=== PATIENT | female | born 1965 | race Hispanic/Latino ===

== ENCOUNTER 2019-03-30 01:20 | Emergency (ER) | payer OTHER ==
--- OUTSIDE RECORDS SUMMARY | 2019-03-30 01:22 | XMS REPORT ---
:1965 Author Organization eClinicalWorks Care Team Providers Name Role Phone Cody Stark Provider Role Unavailable Allergies No Known Allergies Problems Problem Type Condition Code Onset Dates Condition Status Problem Anemia, unspecified type D64.9 Active Problem Rheumatoid arthritis involving M06.9 Active multiple sites, unspecified rheumatoid factor presence Problem Mixed hyperlipidemia E78.2 Active Problem HTN, goal below 140/90 I10 Active Medications No Known Medications Results No Known Results Summary Purpose eClinicalStatsMix Submission
--- OUTSIDE RECORDS SUMMARY | 2019-03-30 01:22 | XMS REPORT ---
:1965 [facility] Address [address] [place] [address] Care Team Providers Name Role Phone Unavailable Unavailable Unavailable Problems This patient has no known problems. Allergies, Adverse Reactions, Alerts This patient has no known allergies or adverse reactions. Medications This patient has no known medications. Results Test Description Test Time Test Comments Text Results Atomic Results Result Comments RAD, CHEST, 2 2018-05-16 Reason for FINAL REPORT PATIENT ID: VIEWS 11:38:00 Exam:->sinusitis, [id number] EXAMINATION: unspecified chronicity; RAD, CHEST, 2 VIEWS unspecified location; INDICATION: Rheumatoid arthritis with sinusitis, unspecified negative rheumatoid chronicity; unspecified arthritis with negative location; Rheumatoid rheumatoid factor, arthritis with negative involving unspecified rheumatoid arthritis with site negative rheumatoid factor, involving unspecified site COMPARISON: None FINDINGS:TUBES and LINES: None. LUNGS: Lungs are well inflated. Mild chronic appearing changes in the lungs There is no evidence of pneumonia or pulmonary edema. PLEURA: No pleural effusion or pneumothorax. HEART AND MEDIASTINUM: The cardiomediastinal silhouette is unremarkable. BONES AND SOFT TISSUES: No acute osseous lesion. Soft tissues are unremarkable. UPPER ABDOMEN: No free air under the diaphragm. IMPRESSION: No acute thoracic abnormality. Signed: Thad Jin MDReport Verified Date/Time: 05/16/2018 11:38:56
--- OUTSIDE RECORDS SUMMARY | 2019-03-30 01:22 | XMS REPORT ---
:1965 Author Organization eClinicalWorks Care Team Providers Name Role Phone Jesús Thong Provider Role Unavailable Allergies No Known Allergies Problems Problem Type Condition Code Onset Dates Condition Status Assessment Mixed hyperlipidemia E78.2 Active Assessment Anemia, unspecified type D64.9 Active Problem Anemia, unspecified type D64.9 Active Problem Rheumatoid arthritis involving M06.9 Active multiple sites, unspecified rheumatoid factor presence Problem Mixed hyperlipidemia E78.2 Active Assessment HTN, goal below 140/90 I10 Active Assessment Rheumatoid arthritis involving M06.9 Active multiple sites, unspecified rheumatoid factor presence Problem HTN, goal below 140/90 I10 Active Medications Medication Code Code Instructions Start End Date Status Dosage System Date Lisinopril [facility] 50958638514 10 MG Orally Active 1 tablet Once a day Folic Acid [facility] 35076884692 1 MG Orally Once Active 1 tablet a day Methotrexate ND 69312496785 2.5 MG Orally Active not defined Results No Known Results Summary Purpose eClinicalWorks Submission
--- NOTE | 2019-03-30 01:42 | ER ---
Nurse's Notes [facility] Name: Shelley Moreno Age: 53 yrs Sex: Female : 1965 Arrival Date: 03/30/2019 Time: 01:22 Bed 18 Private MD: Diagnosis: Encounter for screening, unspecified Presentation: 03/30 01:32 Presenting complaint: Patient states: Believes there is ham in right ear; states she lp1 feels it moving in ear. Transition of care: patient was not received from another setting of care. Onset of symptoms was March 30, 2019. Risk Assessment: Do you want to hurt yourself or someone else? Patient reports no desire to harm self or others. Care prior to arrival: None. 01:32 Method Of Arrival: Ambulatory lp1 01:32 Acuity: VERONICA 5 lp1 Triage Assessment: 01:33 General: Appears uncomfortable, Behavior is appropriate for age. lp1 - Unable to obtain history due to: patient distress. Assessment: 01:33 Reassessment: During triage, ham fell out of patient's right ear; patient states lp1 relief;. 01:34 Reassessment: Patient walking out of ED at this time Patient denies pain at this time. lp1 Patient states feeling better. ED Course: :22 Patient arrived in ED. cl3 01:33 Triage completed. lp1 01:34 Arm band placed on. lp1 01:38 Margaret Taylor FNP-C is PHCP. snw 01:38 Armand Parra MD is Attending Physician. snw Administered Medications: No medications were administered Outcome: 01:35 Condition: good lp1 01:36 Discharged to Left prior to being seen by Provider; Foreign body out of right ear lp1 01:39 Discharge ordered by . lp1 01:39 Patient left the ED. lp1 Signatures: Margaret Taylor FNP-C SUPERINTENDENT-Csnw Padmini Bush RN RN lp1 Georgia Soto cl3
--- NOTE | 2019-03-31 07:44 | EDPHYS ---
Physician Documentation [facility] Name: Shelley Moreno Age: 53 yrs Sex: Female : 1965 Arrival Date: 03/30/2019 Time: 01:22 Bed 18 Private MD: ED Physician Armand Parra HPI: 03/30 01:40 This 53 yrs old Female presents to ER via Ambulatory with complaints of Insect snw In Ear. 01:40 Onset: The symptoms/episode began/occurred suddenly, and became persistent. Associated snw signs and symptoms: The patient has no apparent associated signs or symptoms. The patient has not experienced similar symptoms in the past. It is unknown whether or not the patient has recently seen a physician. - Unable to obtain history due to: patient distress. ROS: 01:41 ENT: Positive for foreign body sensation, of the right ear. snw Exam: 01:38 Constitutional: This is a well developed, well nourished patient who is awake, alert, snw and in no acute distress. Head/Face: Normocephalic, atraumatic. 01:38 ENT: Ear canal(s): foreign body, an insect, shaking head to side to try to expel fb, ham flew from canal, pt declines further exam, tx. MDM: 01:41 Data reviewed: nurses notes. Response to treatment: the patient's symptoms have snw markedly improved after treatment. ED course: pt declined further assessment and left ED, s/s resolved. 01:43 Patient medically screened. snw Administered Medications: No medications were administered Disposition: 05:44 Co-signature as Attending Physician, Armand Parra MD I agree with the assessment and [facility] plan of care. Disposition: 03/30/19 01:39 Discharged to Home. Impression: Encounter for screening, unspecified. - Condition is Stable. - Medication Reconciliation Form, Thank You Letter, Antibiotic Education, Prescription Opioid Use form. Signatures: Armand Parra MD MD cha Therrien, Shelly, CHIEF ANALYTICS OFFICER-C CHIEF ANALYTICS OFFICER-Csnw Padmini Bush, RN RN lp1
== END 2019-03-30 01:39 | disposition home or self-care (01) ==
LOC: ER 01:20
DX: T16.1XXA Foreign body in right ear, initial encounter (principal)
CPT/HCPCS: 99281

== ENCOUNTER 2020-01-14 02:58 | Emergency (ER) | payer OTHER ==
--- OUTSIDE RECORDS SUMMARY | 2020-01-14 03:01 | XMS REPORT | Continuity of Care Document ---
:1965 Author Organization [facility] Address [address] [place] [address] Care Team Providers Name Role Phone Pcp, No Primary Care Physician Unavailable Rikki CUNNINGHAM, Cordelia Palma Attending Clinician [phone] Problems Condition Condition Condition Status Onset Resolution Last Treating Co mments Source Name Details Category Date Date Treatment Clinician Date Mixed Mixed Problem Active [facility] hyperlipid hyperlipid [facility] - emia emia [facility] Anemia, Anemia, Problem Active [facility] unspecifie unspecifie Anat kes - d type d type [facility] Rheumatoid Rheumatoid Problem Active [facility] arthritis arthritis [facility] - involving involving Hernán martha multiple multiple l sites, sites, Outpati unspecifie unspecifie en t d d Clinics rheumatoid rheumatoid factor factor presence presence HTN, goal HTN, goal Problem Active [facility] below below [facility] - 140/90 140/90 [facility] Allergies, Adverse Reactions, Alerts This patient has no known allergies or adverse reactions. Social History Social Habit Start Date Stop Date Quantity Comments Source Sex Assigned At [facility] Medications Ordered Filled Start Stop Current Ordering Indication Dosage Frequency Signature Comments Components Source Medication Medication Date Date Medication? Clinician (SIG) Name Name Lisinopril Lisinopril Yes Thong [address] [facility] Folic Acid Folic Acid Yes Thong [address] [facility] Methotrexat Methotrexat Yes Thong not [facility] defined [facility] Procedures This patient has no known procedures. Encounters Start End Encounter Admission Attending Care Care Encounter Source Date/Time Date/Time Type Type Clinicians Facility Department ID 2019-12-13 2019-12-13 Office Uziel HENRIQUEZ [id number] 09:48:13 10:18:13 Visit Cordelia fuchs AMBULATOR [id number] Palma Y [id number] 2017-11-15 2017-11-15 [facility] [id number] 16:19:00 16:19:00 t Specialty/U Anat kes - Specialty rology [facility] a /Urology Clinic l Clinic Outpati ent Clinics 2017-11-02 2017-11-02 [facility] [id number] 15:00:00 15:00:00 t [employer]uity [employer] [facility] Results Test Description Test Time Test Comments Results Result Sour e Comments RAD, CHEST, 2 2018-05-16 Reason for FINAL REPORT PATIENT VIEWS 11:38:00 Exam:->sinusitis ID: [id number] , unspecified EXAMINATION: RAD, chronicity; CHEST, 2 VIEWS unspecified INDICATION: location; sinusitis, unspecified Rheumatoid chronicity; arthritis with unspecified location; negative Rheumatoid arthritis rheumatoid with negative arthritis with rheumatoid arthritis negative with negative rheumatoid rheumatoid factor, factor, involving unspecified involving site COMPARISON: unspecified site None FINDINGS:TUBES and LINES: None. LUNGS: Lungs [...] IMPRESSION: No acute thoracic abnormality. Signed: Thad Ewing MDReport Verified Date/Time: 05/16/2018 11:38:56
--- OUTSIDE RECORDS SUMMARY | 2020-01-14 03:01 | XMS REPORT | Clinical Summary ---
:1965 Author Organization [facility] Address [address] [place] [id number] Care Team Providers Name Role Phone Pcp, No Primary Care Provider Unavailable Allergies Not on File Medications Not on file Active Problems Not on file Social History Tobacco Use Types Packs/Day Years Used Date Never Assessed Sex Assigned at Date Recorded Not on file Last Filed Vital Signs Not on file Plan of Treatment Not on file Results Not on fileafter 01/13/2019
--- OUTSIDE RECORDS SUMMARY | 2020-01-14 03:02 | XMS REPORT | Summary of Care ---
:1965 Author Organization [facility] [place] [address] Care Team Providers Name Role Phone Ramone Quezada MD Primary Care Provider Reason for Referral Consult, Test & Treat (Routine) Status Reason Specialty Diagnoses / Referred By Referred To Procedures Contact Contact Pending Consult, Test, Ophthalmology Diagnoses Seropositive rheumatoid arthritis of multiple sites (HCCode) Encounter for long-term (current) use of medications Yoseph Barndt and Treat Procedures GA OFFICE OUTPATIENT NEW 45 MINUTES GA EYE EXAM, NEW PATIENT,COMPREHESV Cordelia Palma MD Ophthalmology [address] [phone] Phone: Reason for Visit Reason Comments Disease Management Encounter Details Date Type Department Care Team Description 12/13/2019 Office Visit [facility] Fran Brandt anagement Medicine Rheumatolog y Cordelia Palma MD [address] [place] [address] [facility], [address] [place] [address] [place], [place] [id number] Allergies No Known Allergiesdocumented as of this encounter (statuses as of 12/13/2019) Medications Medication Sig Dispensed Refills Start End Date Status Date lisinopril (PRINIVIL, Take 20 mg 0 Active ZESTRIL) 10 MG tablet by mouth daily. predniSONE (DELTASONE) TAKE 1 AND 45 Tab 0 Active 10 MG 1/2 TABLET 9 tabletIndications: BY MOUTH Rheumatoid arthritis, EVERY DAY seropositive (HCCode) folic acid (FOLVITE) 1 Take 1 Tab 90 Tab 1 Active MG tabletIndications: by mouth 9 Seropositive rheumatoid daily. arthritis of multiple sites (HCCode) folic acid (FOLVITE) 1 Take 1 Tab 90 Tab 1 Active MG tablet by mouth 9 daily. hydroxychloroquine Take 1 Tab 90 Tab 1 Active (PLAQUENIL) 200 MG by mouth 0 tabletIndications: daily. Seropositive rheumatoid arthritis of multiple sites (HCCode), Encounter for long-term (current) use of medications methotrexate TAKE 8 TABS 32 Tab 1 Activ e (RHEUMATREX) 2.5 MG BY MOUTH 0 tabletIndications: EVERY 7 Seropositive rheumatoid DAYS. arthritis of multiple sites (HCCode), Encounter for long-term (current) use of medications folic acid (FOLVITE) 1 Take 1 Tab 90 Tab 1 Active MG tabletIndications: by mouth 0 Seropositive rheumatoid daily. arthritis of multiple sites (HCCode), Encounter for long-term (current) use of medications folic acid (FOLVITE) 1 Take 1 Tab 90 Tab 1 Discontinued MG tabletIndications: by mouth 9 20 (Reorder) Seropositive rheumatoid daily. arthritis of multiple sites (HCCode), Encounter for long-term (current) use of medications hydroxychloroquine Take 1 Tab 60 Tab 5 12/13/19 Discontinued (PLAQUENIL) 200 MG by mouth 9 20 ( Reorder) tabletIndications: two times Seropositive rheumatoid daily. arthritis of multiple sites (HCCode), Encounter for long-term (current) use of medications methotrexate TAKE 8 TABS 32 Tab 1 12/13/19 Disco ntinued (RHEUMATREX) 2.5 MG BY MOUTH 0 20 (Reorder) tabletIndications: EVERY 7 Seropositive rheumatoid DAYS. arthritis of multiple sites (HCCode) documented as of this encounter (statuses as of 12/13/2019) Active Problems Problem Noted Date Seropositive rheumatoid arthritis of multiple sites (H CCode) 10/03/2017 documented as of this encounter (statuses as of 12/13/2019) Immunizations Name Administration Dates Next Due Influenza Quad-PF 02/13/2019, 12/27/2017 documented as of this encounter Social History Tobacco Use Types Packs/Day Years Used Date Never Smoker Smokeless Tobacco: Never Used Alcohol Use Drinks/Week oz/Week Comments No Sex Assigned at Date Recorded Not on file documented as of this encounter Last Filed Vital Signs Vital Sign Reading Time Taken Comments Blood Pressure 118/85 12/13/2019 9:53 AM CDT Pulse 80 12/13/2019 9:53 AM CDT Temperature - - Respiratory Rate 16 12/13/2019 9:53 AM CDT Oxygen Saturation 98% 12/13/2019 9:53 AM CDT Inhaled Oxygen Concentration - - Weight 66.8 kg (147 lb 3.2 oz) 12/13/2019 9:53 AM CDT Height 160 cm (5' 3") 12/13/2019 9:53 AM CDT Body Mass Index 26.08 12/13/2019 9:53 AM CDT documented in this encounter Patient Instructions Patient InstructionsCordelia Brandt MD - 12/13/2019 10:00 AM CDTLab today And every 3 months Return in 4-6 months Please take flu vaccine Activate for mychart Continue plaquenil 200mg once a daily Continue folic acid 1mg daily Continue methotrexate 20 mg once a week If any infection , hold methotrexate Please make your return appointment today to avoid undue delay in scheduling Do not take multiples of medication like motrin aleve advil or celebrex together Can take tyenelol in addition if need be Cordelia Brandt MD documented in this encounter Progress Notes Cordelia Brandt MD - 12/13/2019 10:00 AM CDT HISTORY OF PRESENT ILLNESS: Shelley Moreno is a 54 y.o. year old female who's here to follow up for seropositive RA She states methotrexate has helped a lot with her joints She states she still has less than 20 minutes with her joint pain She states she has no nausea gerd or issues with taking this medicine She is here by herself and states is working in the night as a sanitization worker in [employer] Tolerating methotrexate ok Denies nausea vomiting fever Mostly has issue with her ankle and she states she is not having any new issues with her hands or feet Disease course She was diagnosed with RA in 2003. It affected small joints in hands including R 5th PIP, elbow and shoulders, every where. Her previous sling operator does not accept her insurance. REVIEW OF SYSTEMS positive in bold No fevers, chills, sweats, rigors No weight change ( weight loss while working too much) , anorexia, fatigue, malaise No headache, alopecia, eye redness, photophobia, burning, dry eyes No nasal congestion, sores, oral sores, sore throat, dry mouth No cough or sputum No swollen LN in neck or axilla No pleurisy, SOB, PÉREZ, PND. No chest pain or palpitations No abdominal pain, nausea, emesis, diarrhea No lower extremity swelling No paresthesias No muscle weakness or pain. No joint pain or swelling No skin rash, no psoriatic like lesions, no nodules, no livedoid rash, nail pitting, no digital ulcers No Raynauds No heat/cold intolerance No depression or anxiety PAST MEDICAL HISTORY Past Medical History: Diagnosis Date Rheumatoid arthritis (HCCode) PAST SURGICAL HISTORY Past Surgical History: Procedure Laterality Date HX SECTION x2 MEDICATIONS Current Outpatient Medications on File Prior to Visit Medication Sig Dispense Refill folic acid (FOLVITE) 1 MG tablet Take 1 Tab by mouth daily. 90 Tab 1 folic acid (FOLVITE) 1 MG tablet Take 1 Tab by mouth daily. 90 Tab 1 folic acid (FOLVITE) 1 MG tablet Take 1 Tab by mouth daily. 90 Tab 1 hydroxychloroquine (PLAQUENIL) 200 MG tablet Take 1 Tab by mouth two times daily. 60 Tab 5 lisinopril (PRINIVIL, ZESTRIL) 10 MG tablet Take 20 mg by mouth daily. methotrexate (RHEUMATREX) 2.5 MG tablet TAKE 8 TABS BY MOUTH EVERY 7 DAYS. 32 Tab 1 predniSONE (DELTASONE) 10 MG tablet TAKE 1 AND 1/2 TABLET BY MOUTH EVERY DAY 45 Tab 0 No current facility-administered medications on file prior to visit. ALLERGIES Allergies as of 12/13/2019 (No Known Allergies) FAMILY HISTORY FH: No family history on file. SOCIAL HISTORY Social History Tobacco Use Smoking status: Never Smoker Smokeless tobacco: Never Used Substance Use Topics Alcohol use: No Drug use: Not on file PHYSICAL EXAM VS : Blood pressure 118/85, pulse 80, resp. rate 16, height 5' 3" (1.6 m), weight 147 lb 3.2 oz (66.8 kg), SpO2 98 %. GENERAL: NAD, pleasant, healthy appearing HEENT: sclera anicteric, OP clear, PERRL NECK: supple no LAD, no TM, FROM CV: RRR no mgr CHEST: CTA bilateral with no rales no wheezes, equal inspiratory movement bilaterally ABD: soft NT ND BS+ no HSM EXT: no cce Neuro: grossly intact, normal gait, motor exam with nl strength in UE and LE symmetrically, DTR2+ inbrachial, wrist, patellar, ankle sd.; EHL nl sd SKIN no rash, no nail pits, no onycholysis, no nodules MUSCULOSKELETAL EXAM : DIP- no Heberdens nodes, no synovitis, nontender (bilateral) PIP - no Bouchards nodes,+ synovitis, MCP 2,3 nontender (bilateral) MCP - neg squeeze,2 joints small synovitis , WRIST - FROM to palmar and dorsi flexion, no effusion, no synovitis, neg Tinels and Phalens (bilateral) ELBOWS - no effusion, no synovitis, no nodules or tophi, FROM, no flexion contracture, nontender, notendonitis(bilateral) nodules present left elbow SHOULDERS - FROM nontender (bilateral) HIPS - FROM nontender, neg for trochanteric bursitis (bilateral) KNEES - no effusion, no synovitis, nontender, no crepitus, no patellar clicking, neg prepatellar bursa tenderness, neg anserine bursa tenderness (bilateral) ANKLES no synovitis or effusion, FROM in inv/eversion, dorsi/plantar. MTPs neg squeeze tenderness, no synovitis (bilateral) BACK : nontender, normal curvature, neg SLR, neg EHL Fibromyalgia Trigger points negative ADDITIONAL DATA Lab Results Component Value Date WBC 5.0 02/13/2019 HGB 11.7 02/13/2019 HCT 33.8 (L) 02/13/2019 MCV 90.4 02/13/2019 PLT 307 02/13/2019 Results for orders placed or performed in visit on 02/02/19 COMPREHENSIVE METABOLIC PANEL Result Value GLUCOSE 96 BLOOD UREA NITROGEN 10 CREATININE 0.58 (L) EGFR AA 123 EGFR 106 BUN/CREAT RATIO 17 SODIUM 140 POTASSIUM 4.5 CHLORIDE 102 CO2 27 CALCIUM 9.7 PROTEIN TOTAL 7.5 ALBUMIN 4.3 GLOBULINS, SERUM, TOTAL 3.2 A/G RATIO 1.3 BILIRUBIN TOTAL 0.4 ALKALINE PHOSPHATASE 80 AST (SGOT) 8 (L) ALT (SGPT) 8 IMPRESSION AND PLAN Seropositive rheumatoid arthritis of multiple sites High risk medications (not anticoagulants) long-term use SJC 2 TJC 2 Pt global : 2 Physician global 2 CDAI - 8 Seems to have responded to increased methotrexate dose continue same Update eye exam ( use less than 5 yrs of plaquenil ) Imp :Lab today And every 3 months Return in 4-6 months Please take flu vaccine Activate for mychart Continue plaquenil 200mg once a daily Continue folic acid 1mg daily Continue methotrexate 20 mg once a week If any infection , hold methotrexate Please make your return appointment today to avoid undue delay in scheduling Do not take multiples of medication like motrin aleve advil or celebrex together Can take tyenelol in addition if need be Cordelia Brandt MD documented in this encounter Plan of Treatment Name Type Priority Associated Diagnoses Order S chedule CBC W/AUTO DIFF WITH Lab Routine Seropositive rheumat oid Expected: 12/13/2019, PLATELETS arthritis of multiple s: 06/11/[place] sites [place] Encounter for long-term (current) use of medications COMPREHENSIVE METABOLIC Lab Routine Seropositive rheu matoid 1 Occurrences starting PANEL arthritis of multiple 2019 until sites [place] 06/11/2020 Encounter for long-term (current) use of medications C-REACTIVE PROTEIN Lab Routine Seropositive rheumatoi d Expected: 01/12/2020, arthritis of multiple s: 06/11/2020 sites ([facility] Encounter for long-term (current) use of medications Name Type Priority Associated Diagnoses Order S chedule AMB REF TO Outpatient Routine Seropositive Ordered: O[facility]ALMOLOGY [facility] Referral rheumatoid arthritis 12/13/2019 of multiple sites ([facility] Encounter for long-term (current) use of medications Health Maintenance Due Date Last Done Comments COLON CANCER SCREENIN1966 COLONOSCOPY MAMMOGRAM ANNUAL 1965 TETANUS SHOT (ADULT) 1981 BMI FOLLOW UP PLAN 1984 HIV SCREENING 1984 CERVICAL CANCER SCREENING 4 YEAR 1987 FOLLOW UP ZOSTER VACCINE (1 of 2) 2016 FLU VACCINE > 6 MONTHS 11/03/2019 02/13/2019, 02/13/2019, 12/27/2017, Additional history exists documented as of this encounter Results Not on filedocumented in this encounter Visit Diagnoses Diagnosis Seropositive rheumatoid arthritis of [facility] (HCCode) - Primary Encounter for long-term (current) use of medications Encounter for long-term (current) use of other medications documented in this encounter Insurance Payer Benefit Plan / Subscriber ID Effective Dates Phone Addre ss Type Group [facility] [employer] [id number] 2019-Jorge NUNN [id number] [facility] [place] [address] documented as of this encounter
--- NOTE | 2020-01-14 03:17 | ER ---
Nurse's Notes [facility] Name: Shelley Moreno Age: 54 yrs Sex: Female : 1965 Arrival Date: 01/14/2020 Time: 03:00 Bed 3 Private MD: Diagnosis: Allergic reaction Presentation: 01/13 03:12 Chief complaint: Patient states: I have a rash that started yesterday at 4pm. I took a jb4 benadryl at 8pm and one at 1 am. It has not helped at all. Coronavirus screen: Client denies travel out of the [place] in the last 14 days. At this time, the client does not indicate any symptoms associated with coronavirus-19. Ebola Screen: No symptoms or risks identified at this time. Onset: The symptoms/episode began/occurred gradually. Anaphylaxis evaluation, no signs or symptoms of anaphylaxis were noted. Initial Sepsis Screen: Does the patient meet any 2 criteria? No. Patient's initial sepsis screen is negative. Does the patient have a suspected source of infection? No. Patient's initial sepsis screen is negative. Risk Assessment: Do you want to hurt yourself or someone else? Patient reports no desire to harm self or others. Onset of symptoms was January 13, 2020. 03:12 Method Of Arrival: Ambulatory jb4 03:12 Acuity: VERONICA 4 jb4 Historical: - Allergies: 03:14 No Known Allergies; jb4 - Home Meds: 03:14 Methotrexate Sodium Oral [Active]; Lisinopril Oral [Active]; jb4 - PMHx: 03:14 Hypertension; Arthritis; jb4 - PSHx: 03:14 ; jb4 - Immunization history:: Adult Immunizations up to date. - Social history:: Smoking status: Patient denies any tobacco usage or history of. Screenin:15 Abuse screen: Denies threats or abuse. Nutritional screening: No deficits noted. jb4 Tuberculosis screening: No symptoms or risk factors identified. Fall Risk None identified. Assessment: 03:15 General: Appears in no apparent distress. uncomfortable, Behavior is calm, cooperative. jb4 Pain: Denies pain. Neuro: Level of Consciousness is awake, alert, obeys commands, Oriented to person, place, time, situation. Cardiovascular: Patient's skin is warm and dry. Respiratory: Airway is patent Respiratory effort is even, unlabored, Respiratory pattern is regular, symmetrical. GI: No signs and/or symptoms were reported involving the gastrointestinal system. : No signs and/or symptoms were reported regarding the genitourinary system. EENT: No signs and/or symptoms were reported regarding the EENT system. Derm: Skin is intact, Skin is pink, warm \T\ dry. Rash noted that is itchy, red, raised, on right ear, left ear, back, chest and abdomen. Musculoskeletal: Circulation, motion, and sensation intact. Range of motion: intact in all extremities. Vital Signs: 03:12 BP 141 / 85; Pulse 82; Resp 16; Temp 99.1(TE); Pulse Ox 99% on R/A; Weight 65.32 kg jb4 (R); Height 5 ft. 2 in. (157.48 cm) (R); Pain 0/10; 03:12 Body Mass Index 26.34 (65.32 kg, 157.48 cm) jb4 ED Course: 03:00 Patient arrived in ED. bp1 03:02 Yandel Montes De Oca MD is Attending Physician. tw4 03:05 Joe Suarez, RN is Primary Nurse. jb4 03:13 Triage completed. jb4 03:14 Arm band placed on right wrist. jb4 03:15 Patient has correct armband on for positive identification. Bed in low position. Call jb4 light in reach. Side rails up X 1. Pulse ox on. NIBP on. 03:32 No provider procedures requiring assistance completed. Patient did not have IV access jb4 during this emergency room visit. Administered Medications: 03:28 Drug: Pepcid 20 mg Route: PO; jb4 03:31 Follow up: Response: Medication administered at discharge. jb4 03:29 Drug: SOLU-Medrol 125 mg Route: IM; Site: right gluteus; jb4 03:32 Follow up: Response: Medication administered at discharge. jb4 Outcome: 03:16 Discharge ordered by . tw4 03:32 Discharged to home ambulatory, with family. jb4 03:32 Condition: stable 03:32 Discharge instructions given to patient, Instructed on discharge instructions, follow up and referral plans. medication usage, Demonstrated understanding of instructions, follow-up care, medications, Prescriptions given X 2. 03:33 Patient left the ED. jb4 Signatures: Joe Suarez RN RN jb4 Yandel Montes De Oca MD MD tw4 Cielo Maria bp1
--- NOTE | 2020-01-14 03:17 | EDPHYS ---
Physician Documentation [facility] Name: Shelley Moreno Age: 54 yrs Sex: Female : 1965 Arrival Date: 01/14/2020 Time: 03:00 Bed 3 Private MD: ED Physician Yandel Montes De Oca HPI: 01/13 05:20 This 54 yrs old Female presents to ER via Ambulatory with complaints of tw4 Allergic Reaction. 05:20 The patient presents with itching, localized swelling, rash, that is diffuse. Onset: tw4 The symptoms/episode began/occurred today. Associated signs and symptoms: The patient has no apparent associated signs or symptoms. Possible causes: Severity of symptoms: At their worst the symptoms were mild in the emergency department the symptoms are unchanged. The patient has not experienced similar symptoms in the past. Historical: - Allergies: 03:14 No Known Allergies; jb4 - Home Meds: 03:14 Methotrexate Sodium Oral [Active]; Lisinopril Oral [Active]; jb4 - PMHx: 03:14 Hypertension; Arthritis; jb4 - PSHx: 03:14 ; jb4 - Immunization history:: Adult Immunizations up to date. - Social history:: Smoking status: Patient denies any tobacco usage or history of. ROS: 05:20 Constitutional: Negative for fever, chills, and weight loss, Eyes: Negative for injury, tw4 pain, redness, and discharge, Cardiovascular: Negative for chest pain, palpitations, and edema, Respiratory: Negative for shortness of breath, cough, wheezing, and pleuritic chest pain, Abdomen/GI: Negative for abdominal pain, nausea, vomiting, diarrhea, and constipation, Back: Negative for injury and pain, Neuro: Negative for headache, weakness, numbness, tingling, and seizure. 05:20 Skin: Positive for rash. Exam: 05:20 Constitutional: This is a well developed, well nourished patient who is awake, alert, tw4 and in no acute distress. Head/Face: Normocephalic, atraumatic. Chest/axilla: Normal chest wall appearance and motion. Nontender with no deformity. No lesions are appreciated. Cardiovascular: Regular rate and rhythm with a normal S1 and S2. No gallops, murmurs, or rubs. Normal PMI, no JVD. No pulse deficits. Respiratory: Lungs have equal breath sounds bilaterally, clear to auscultation and percussion. No rales, rhonchi or wheezes noted. No increased work of breathing, no retractions or nasal flaring. Abdomen/GI: Soft, non-tender, with normal bowel sounds. No distension or tympany. No guarding or rebound. No evidence of tenderness throughout. 05:20 Skin: urticaria. Vital Signs: 03:12 BP 141 / 85; Pulse 82; Resp 16; Temp 99.1(TE); Pulse Ox 99% on R/A; Weight 65.32 kg jb4 (R); Height 5 ft. 2 in. (157.48 cm) (R); Pain 0/10; 03:12 Body Mass Index 26.34 (65.32 kg, 157.48 cm) jb4 MDM: 03:07 Patient medically screened. tw4 05:20 Data reviewed: vital signs, nurses notes. Data interpreted: Pulse oximetry:. tw4 Counseling: I had a detailed discussion with the patient and/or guardian regarding: the historical points, exam findings, and any diagnostic results supporting the discharge/admit diagnosis. Special discussion: I discussed with the patient/guardian in detail that at this point there is no indication for admission to the hospital. It is understood, however, that if the symptoms persist or worsen the patient needs to return immediately for re-evaluation. Administered Medications: 03:28 Drug: Pepcid 20 mg Route: PO; jb4 03:31 Follow up: Response: Medication administered at discharge. jb4 03:29 Drug: SOLU-Medrol 125 mg Route: IM; Site: right gluteus; jb4 03:32 Follow up: Response: Medication administered at discharge. jb4 Disposition: 20 03:16 Discharged to Home. Impression: Allergic reaction. - Condition is Stable. - Discharge Instructions: Allergies, Adult. - Prescriptions for Medrol (Juan Alberto) 4 mg Oral Tablets, Dose Pack - take 1 tablet by ORAL route as directed - follow package instructions; 1 packet. Pepcid 20 mg Oral Tablet - take 1 tablet by ORAL route once daily; 20 tablet. - Medication Reconciliation Form, Thank You Letter, Antibiotic Education, Prescription Opioid Use form. - Follow up: Private Physician; When: Upon discharge from the Emergency Department; Reason: Recheck today's complaints, Continuance of care, Re-evaluation by your physician. - Problem is new. - Symptoms have improved. Signatures: Joe Suarez RN RN jb4 Yandel Montes De Oca MD MD tw4 Corrections: (The following items were deleted from the chart) 03:33 03:16 01/14/2020 03:16 Discharged to Home. Impression: Allergic reaction. Condition is jb4 Stable. Forms are Medication Reconciliation Form, Thank You Letter, Antibiotic Education, Prescription Opioid Use. Follow up: Private Physician; When: Upon discharge from the Emergency Department; Reason: Recheck today's complaints, Continuance of care, Re-evaluation by your physician. Problem is new. Symptoms have improved. tw4
[2020-01-14] MEDS ORDERED: METHYLPREDNISOLONE 125 MG INJ ONE (03:35)
[2020-01-14] MEDS ORDERED: FAMOTIDINE 20 MG TAB ONE (03:35)
[2020-01-14 03:38] VITALS: BP 141/85; TEMP 99.1; O2SAT 99
== END 2020-01-14 03:33 | disposition home or self-care (01) ==
LOC: ER 02:58
DX: R21 Rash and other nonspecific skin eruption (principal); I10 Essential (primary) hypertension
CPT/HCPCS: 96372; 99283; J2930

== ENCOUNTER → 2023-05-31 | Emergency (ER) | payer OTHER, SELFPAY ==
[~2023-05-31] MED LIST: MECLIZINE HCL 12.5 MG TAB ONE; ONDANSETRON 4 MG (ODT) TAB ONE
--- NOTE | 2023-05-31 13:41 | RAD REPORT ---
EXAM DESCRIPTION: CT - Head Brain Wo Cont - 05/31/2023 1:31 pm CLINICAL HISTORY: vertigo;Dizziness COMPARISON: No comparisons TECHNIQUE: All CT scans are performed using dose optimization technique as appropriate and may inclu de automated exposure control or mA/KV adjustment according to patient size. FINDINGS: No intracranial hemorrhage, hydrocephalus or extra-axial fluid collection.No areas of brai n edema or evidence of midline shift. The paranasal sinuses and mastoids are clear. The calvarium is intact. IMPRESSION: No acute intracranial abnormality.
--- NOTE | 2023-05-31 14:20 | ER ---
Nurse's Notes [facility] Name: Shelley Moreno Age: 58 yrs Sex: Female : 1965 Arrival Date: 05/31/2023 Time: 12:35 Bed 16 Private MD: Diagnosis: Peripheral vertigo Presentation: 05/31 12:55 Chief complaint: Patient states: dizziness with vomiting that started today. pt states as6 the dizziness increasing when pt looks down. Coronavirus screen: At this time, the client does not indicate any symptoms associated with coronavirus-19. Ebola Screen: No symptoms or risks identified at this time. Initial Sepsis Screen: Does the patient meet any 2 criteria? No. Patient's initial sepsis screen is negative. Does the patient have a suspected source of infection? No. Patient's initial sepsis screen is negative. Risk Assessment: Do you want to hurt yourself or someone else? Patient reports no desire to harm self or others. Onset of symptoms was May 31, 2023. 12:55 Acuity: VERONICA 3 as6 12:55 Method Of Arrival: Wheelchair as6 Triage Assessment: 14:00 General: Appears in no apparent distress. comfortable, Behavior is calm, cooperative, nj1 appropriate for age. Historical: - Allergies: 12:55 No Known Allergies; as6 - PMHx: 12:55 Arthritis; Hypertension; as6 - PSHx: 12:55 section; as6 - Immunization history:: Adult Immunizations up to date. - Social history:: Smoking status: Patient denies any tobacco usage or history of. Screenin:00 [facility] ED Fall Risk Assessment (Adult) Score/Fall Risk Level 0 - 2 = Low Risk nj1 Oriented to surroundings, Maintained a safe environment, Hourly rounding (assess needs \T\ fall precautionary measures) done. 14:00 Abuse screen: Denies threats or abuse. Denies injuries from another. Nutritional nj1 screening: No deficits noted. Tuberculosis screening: No symptoms or risk factors identified. Assessment: 14:00 General: Appears in no apparent distress. comfortable, Behavior is calm, cooperative, nj1 appropriate for age. Pain: Denies pain. Neuro: Level of Consciousness is awake, alert, obeys commands, Oriented to person, place, time, situation. Cardiovascular: Patient's skin is warm and dry. Respiratory: Airway is patent Respiratory effort is even, unlabored. GI: Reports nausea. Vital Signs: 12:55 BP 122 / 76; Pulse 72; Resp 18 S; Temp 97.5(TE); Pulse Ox 97% on R/A; Weight 68.04 kg as6 (R); Height 5 ft. 2 in. (R); Pain 0/10; 14:30 BP 114 / 66; Pulse 68; Resp 16; Temp 97; Pulse Ox 98% on R/A; nj1 12:55 Body Mass Index 27.44 (68.04 kg, 157.48 cm) as6 12:55 Pain Scale: Adult as6 ED Course: 12:39 Patient arrived in ED. im 12:42 Billy Grady MD is Attending Physician. rn 12:50 Guerline Espinosa MD is Attending Physician. rn 12:55 Arm band placed on. as6 12:57 Triage completed. as6 13:33 CT Head Brain wo Cont In Process Unspecified. EDMS 13:43 Tonja Hernandez RN is Primary Nurse. nj1 14:00 Patient has correct armband on for positive identification. Bed in low position. Call nj1 light in reach. Provided Education on: call light, fall precautions. 14:30 No provider procedures requiring assistance completed. nj1 14:30 Patient did not have IV access during this emergency room visit. nj1 Administered Medications: 14:05 Drug: Meclizine PO 25 mg PO once Route: PO; nj1 14:05 Drug: Ondansetron Oral Disintegrating Tablet Oral Disintegrating Tablet 8 mg PO once; nj1 may repeat once in 8-12 hours Route: PO; Medication: 14:30 VIS not applicable for this client. nj1 Outcome: 14:20 Discharge ordered by . sp3 14:32 Discharged to home ambulatory, with family, iw 14:32 Condition: good 14:32 Discharge instructions given to patient, family, Instructed on discharge instructions, follow up and referral plans. medication usage, Demonstrated understanding of instructions, follow-up care, medications, Prescriptions given X 2, 14:32 Patient left the ED. iw Signatures: Dispatcher [employer] EDMS Bria Noriega RN RN iw Billy Grady MD MD rn Patel, Setul, MD MD sp3 Sudhir Barnes RN RN as6 Tonja Hernandez RN RN nj1 Nancy Ortiz im
--- NOTE | 2023-05-31 14:20 | EDPHYS ---
Physician Documentation [facility] Name: Shelley Moreno Age: 58 yrs Sex: Female : 1965 Arrival Date: 05/31/2023 Time: 12:35 Bed 16 Private MD: ED Physician Guerline Espinosa HPI: 05/31 13:22 This 58 yrs old Female presents to ER via Wheelchair with complaints of sp3 Dizziness, Vomiting. 13:22 58-year-old female with history of arthritis and hypertension now presents to the ED sp3 with chief complaint vertigo upon head movement that started suddenly approximately 1 hour ago. She denies headache, neck pain, shortness of breath, chest pain, Seth pain, rash, syncope, near syncope, other neurological deficit, double vision, trauma, or any other signs or symptoms on ROS at this time. No prior history of vertigo noted.. Historical: - Allergies: 12:55 No Known Allergies; as6 - PMHx: 12:55 Arthritis; Hypertension; as6 - PSHx: 12:55 section; as6 - Immunization history:: Adult Immunizations up to date. - Social history:: Smoking status: Patient denies any tobacco usage or history of. ROS: 13:23 Constitutional: Negative for fever, chills, and weight loss, Eyes: Negative for injury, sp3 pain, redness, and discharge, Neck: Negative for injury, pain, and swelling, Cardiovascular: Negative for chest pain, palpitations, and edema, Respiratory: Negative for shortness of breath, cough, wheezing, and pleuritic chest pain, Abdomen/GI: Negative for abdominal pain, nausea, vomiting, diarrhea, and constipation, Back: Negative for injury and pain, MS/Extremity: Negative for injury and deformity, Skin: Negative for injury, rash, and discoloration, Psych: Negative for depression, anxiety, suicide ideation, homicidal ideation, and hallucinations, Allergy/Immunology: Negative for hives, rash, and allergies, Endocrine: Negative for neck swelling, polydipsia, polyuria, polyphagia, and marked weight changes, Hematologic/Lymphatic: Negative for swollen nodes, abnormal bleeding, and unusual bruising, 13:23 All other systems are negative, Exam: 13:24 Constitutional: This is a well developed, well nourished patient who is awake, alert, sp3 and in no acute distress. Head/Face: Normocephalic, atraumatic. ENT: Nares patent. No nasal discharge, no septal abnormalities noted. External auditory canals are clear. Oropharynx with no redness, swelling, or masses, exudates, or evidence of obstruction, uvula midline. Mucous membranes moist. Neck: Trachea midline, no thyromegaly or masses palpated, and no cervical lymphadenopathy. Supple, full range of motion without nuchal rigidity, or vertebral point tenderness. No Meningismus. Chest/axilla: Normal chest wall appearance and motion. Nontender with no deformity. No lesions are appreciated. Cardiovascular: Regular rate and rhythm with a normal S1 and S2. No gallops, murmurs, or rubs. Normal PMI, no JVD. No pulse deficits. Respiratory: Lungs have equal breath sounds bilaterally, clear to auscultation and percussion. No rales, rhonchi or wheezes noted. No increased work of breathing, no retractions or nasal flaring. Abdomen/GI: Soft, non-tender, with normal bowel sounds. No distension or tympany. No guarding or rebound. No evidence of tenderness throughout. Back: No spinal tenderness. No costovertebral tenderness. Full range of motion. Skin: Warm, dry with normal turgor. Normal color with no rashes, no lesions, and no evidence of cellulitis. MS/ Extremity: Pulses equal, no cyanosis. Neurovascular intact. Full, normal range of motion. Psych: Awake, alert, with orientation to person, place and time. Behavior, mood, and affect are within normal limits. 13:24 Eyes: Nystagmus: Horizontal nystagmus noted.. 13:24 Neuro: Patient has not started meds as noted earlier and gait is limited secondary to vertigo. No other focal neurological deficits noted including the cranial nerves that are remaining and motor or sensory. Mental status is normal as a speech., Vital Signs: 12:55 BP 122 / 76; Pulse 72; Resp 18 S; Temp 97.5(TE); Pulse Ox 97% on R/A; Weight 68.04 kg as6 (R); Height 5 ft. 2 in. (R); Pain 0/10; 14:30 BP 114 / 66; Pulse 68; Resp 16; Temp 97; Pulse Ox 98% on R/A; nj1 12:55 Body Mass Index 27.44 (68.04 kg, 157.48 cm) as6 12:55 Pain Scale: Adult as6 MDM: 12:42 Patient medically screened. rn 13:25 Data reviewed: vital signs, nurses notes, radiologic studies. ED course: 58-year-old sp3 female with sudden onset vertigo. Consider peripheral versus central with probable peripheral vertigo. No other symptoms reported and neurological exam is otherwise normal. Will obtain CT scan of the head and treat with meclizine and ondansetron p.o. Probable discharge if patient is improved and CT is negative. Clinically have ruled out TIA/CVA, ACS, PE, or any other critical pathology at this time.. 14:18 ED course: CT scan is negative and patient is much improved with medication. We will sp3 safely discharged home on both meclizine and Zofran.. 05/31 13:11 Order name: CT Head Brain wo Cont; Complete Time: 13:56 sp3 Administered Medications: 14:05 Drug: Meclizine PO 25 mg PO once Route: PO; nj1 14:05 Drug: Ondansetron Oral Disintegrating Tablet Oral Disintegrating Tablet 8 mg PO once; nj1 may repeat once in 8-12 hours Route: PO; Disposition Summary: 05/31/23 14:20 Discharge Ordered Notes: Location: Home sp3 Condition: Stable sp3 Diagnosis - Peripheral vertigo sp3 Followup: sp3 - With: Private Physician - When: Upon discharge from the Emergency Department - Reason: Continuance of care Discharge Instructions: - Discharge Summary Sheet sp3 - Vertigo sp3 Forms: - Medication Reconciliation Form sp3 - Thank You Letter sp3 - Antibiotic Education sp3 - Prescription Opioid Use sp3 - Patient Portal Instructions sp3 - Leadership Thank You Letter sp3 Prescriptions: - Meclizine 25 mg Oral Tablet - take 1 tablet ORAL route every 8 hours As needed; 30 tablet; Refills: 0, sp3 Product Selection Permitted - ondansetron 8 mg Oral Tablet,disintegrating - take 1 tablet ORAL route every 12 hours; 15 tablet; Refills: 0, Product sp3 Selection Permitted Signatures: Dispatcher [employer] EDMS Billy Grady MD MD rn Patel, Setul, MD MD sp3 Sudhir Barnes RN RN as6 David, Tonja, RN RN nj1
[2023-05-31 14:38] VITALS: BP 114/66; TEMP 97; O2SAT 98
== END ==
LOC: ER 12:35
DX: H81.399 Other peripheral vertigo, unspecified ear (principal); I10 Essential (primary) hypertension
CPT/HCPCS: 70450; J8597; Q0162